=== PATIENT | male | born 1945 | race Caucasian/White ===

== ENCOUNTER → 2021-03-29 | Outpatient (CLI) | payer MEDICARE | LOC: M.RAD 15:08 | PROVIDERS: ATTEND Internal Medicine Critical Care Medicine | DX: J98.4 Other disorders of lung (principal) ==

== ENCOUNTER → 2021-04-05 | Outpatient (CLI) | payer MEDICARE ==
--- NOTE | 2021-04-10 11:13 | PF ---
[place] [address] PULMONARY FUNCTION REPORT Name: PATRIC HERNDON Room: [facility]#: [id number] Admission: 04/05/21 Attend Phys: Pavel Razo MD Discharge: Date of : 49 Report #: [id number] THIS REPORT FOR: cc: García Yanez James V. DO Pervez, Adeel MD ~ DATE OF VISIT: 04/05/2021 The FEV1/FVC ratio is normal at 78% with an FVC normal at 86% and an FEV1 normal at 91%. The FEF 25-75 is also normal at 110%. After the administration of a bronchodilator, there is no significant increase in any of these values. The patient's post-bronchodilator FEV1 is noted to be 3.11 liters. The total lung capacity is normal at 83% with a residual volume normal at 81%. The DLCO, as adjusted for hemoglobin, is decreased to 69%. IMPRESSION: 1. Normal spirometry. 2. Normal lung volumes. 3. DLCO, as adjusted for hemoglobin, decreased to 69%. <ELECTRONICALLY SIGNED> By: Pavel Razo MD 04/10/21 1113 [id number] Razo MD /nt
== END ==
LOC: M.ULTRA 04-03 15:07
PROVIDERS: ATTEND Internal Medicine Critical Care Medicine
DX: M71.22 Synovial cyst of popliteal space [Baker], left knee (principal); I83.893 Varicose veins of bilateral lower extremities with other complications; R06.02 Shortness of breath

== ENCOUNTER → 2021-06-28 | Outpatient (CLI) | payer MEDICARE ==
[2021-06-28 13:15] LABS: CREATININE 1.2 mg/dL (0.6-1.3)
== END ==
LOC: M.LAB 12:47
PROVIDERS: ATTEND Internal Medicine Critical Care Medicine
DX: R06.02 Shortness of breath (principal)

== ENCOUNTER → 2021-07-02 | Outpatient (CLI) | payer MEDICARE ==
--- NOTE | 2021-07-02 12:49 | 2DMMODE ---
[place] [address] 2 D/M-MODE ECHOCARDIOGRAM Name: PATRIC HERNDON Room: [facility]#: [id number] Admission: 07/02/21 Attend Phys: Pavel Razo MD Discharge: Date of : 49 Date of Service: 07/02/21 1249 Report #: [id number] THIS REPORT FOR: cc: García Yanez James V. DO Blick, David R. MD [facility] ~ APPROVED REPORT Study performed: 07/02/2021 11:59:10 EXAM: Comprehensive 2D, Doppler, and color-flow Echocardiogram Patient Location: Out-Patient BSA: 2.21 HR: 66 bpm BP: 140/82 mmHg Other Information Study Quality: Good Indications Dyspnea 2D Dimensions IVSd: 13.80 (7-11mm) LVOT Diam: 20.44 (18-24mm) LVDd: 55.68 mm PWd: 12.52 (7-11mm) Ascending Ao: 38.79 (22-36mm) LVDs: 31.22 (25-40mm) Aortic Root: 36.29 mm Volumes Left Atrial Volume (Systole) LA ESV Index: 21.50 mL/m2 Aortic Valve AoV Peak Hiram.: 1.49 m/s AO Peak Gr.: 8.89 mmHg LVOT Max P.00 mmHg AO Mean Gr.: 4.46 mmHg LVOT Mean P.48 mmHg LVOT Max V: 0.87 m/s AO V2 VTI: 27.53 cm LVOT Mean V: 0.56 m/s COLIN (VTI): 2.33 cm2 LVOT V1 VTI: 19.54 cm AI Morris: 2.53 m/s2 AI PHT: 556.63 [place] [address] 2 D/M-MODE ECHOCARDIOGRAM Name: PATRIC HERNDON Room: [facility]#: [id number] Admission: 07/02/21 Attend Phys: Pavel Razo MD Discharge: Date of : 49 Date of Service: 07/02/21 1249 Report #: [id number] Mitral Valve E/A Ratio: 0.66 MV Decel. Time: 300.43 ms MV E Max Hiram.: 0.45 m/s MV PHT: 87.13 ms MVA (PHT): 2.53 cm2 TDI E/Lateral E': 6.43 E/Medial E': 7.50 Medial E' Hiram.: 0.06 m/s Lateral E' Hiram.: 0.07 m/s Pulmonary Valve PV Peak Hiram.: 0.90 m/s PV Peak Gr.: 3.23 mmHg Tricuspid Valve RAP Estimate: 5.00 mmHg TR Peak Gr.: 21.34 mmHg RVSP: 26.34 mmHg PA Pressure: 26.34 mmHg Left Ventricle The left ventricle is normal size. There is normal LV segmental wall motion. Mild concentric left ventricular hypertrophy. Left ventricular systolic function is normal. The left ventricular ejection fraction is within the normal range. LVEF is 55-60%. Grade I - abnormal relaxation pattern. Right Ventricle The right ventricle is normal size. The right ventricular systolic function is normal. Atria The left atrium size is normal. The right atrium size is normal. Aortic Valve Mild aortic valve sclerosis. Moderate aortic regurgitation. There is no aortic valvular stenosis. Mitral Valve The mitral valve is normal in structure. There is no mitral valve regurgitation noted. No evidence of mitral valve stenosis. Tricuspid Valve The tricuspid valve is normal in structure. Mild [place] [address] 2 D/M-MODE ECHOCARDIOGRAM Name: PATRIC HERNDON Room: [facility]#: [id number] Admission: 07/02/21 Attend Phys: Pavel Razo MD Discharge: Date of : 49 Date of Service: 07/02/21 1249 Report #: [id number] Pulmonic Valve The pulmonary valve is normal in structure. There is no pulmonic valvular regurgitation. Great Vessels The aortic root is normal in size. The ascending aorta is mildly dilated. IVC is normal in size and collapses >50% with inspiration. Pericardium There is no pericardial effusion. <Conclusion> Mild concentric left ventricular hypertrophy. LVEF is 55-60%. Mild aortic valve sclerosis. Moderate aortic regurgitation. <ELECTRONICALLY SIGNED> By: Dell Palacio MD, FACC 07/02/21 1249 1249 1249 Dell Palacio MD, FACC /INF
== END ==
LOC: M.CRD 10:39
PROVIDERS: ATTEND Internal Medicine Critical Care Medicine
DX: I08.2 Rheumatic disorders of both aortic and tricuspid valves (principal); I70.0 Atherosclerosis of aorta